=== PATIENT | female | born 1980 | race Two or more races ===

== ENCOUNTER 2023-01-27 15:14 | Inpatient (IN) | payer MEDICAID ==
[~2023-01-27] VITALS: Ht 172.7 cm; Wt 143.4 kg
--- NOTE | 2023-01-27 16:16 | NUR ---
ADMIT NOTE: Pt. direct admit from [facility]. Pt. is on a 5150 for DTS. 5150 states "You are reporting you are feeling suicidal and are unable to safety plan". Pt. cooperative with admission assessment and skin check. Pt. has multiple bruises (see pictures). Pt. has rashes on her wrist, pt. reports that she was recently in snf for trespassing and that her rash on her wrist are from the handcuffs and bruises are from being roughed up by the police. Pt. denies current SI/HI, A/V hallucinations. Pt. reports self harm behavior x1 month ago when she burned a cigarette into her arm. Pt. reports she self-harms due to stress r/t her having custody of their daughter and her visiting being restricted. Pt. reports that she is in a crisis primarily due to her insomnia and feeling manic. Pt. states, "I really just need to sleep". Pt. requested smoking cessation information and given print out. Pt. is A&Ox4 and in no apparent distress.
[2023-01-27] MEDS ORDERED: magnesium hydroxide 30ml (MOM) UD suspension PO PRN (16:20)
[2023-01-27] MEDS ORDERED: loperamide 2mg capsule PO PRN (16:20)
[2023-01-27] MEDS ORDERED: acetaminophen 325mg tablet PO PRN ×2 (16:20)
[2023-01-27] MEDS ORDERED: SERT25TA PO (16:39)
[2023-01-27] MEDS ORDERED: OLAN15TA3 PO (16:39)
[2023-01-27] MEDS ORDERED: TRAZ-256 PO (16:39)
[2023-01-27 18:23] VITALS: BP 124/85
[2023-01-27 19:00] VITALS: BP 118/71
[2023-01-27] MEDS: traZODone 50mg tablet PO PRN (20:35)
[2023-01-27] MEDS: OLANZAPINE 5 MG TABLET PO SCH (20:35)
--- NOTE | 2023-01-28 03:42 | NUR ---
Nursing Progress Note: Problem: Pt. direct admit from [facility]. Pt. is on a 5150 for DTS. 5150 states "You are reporting you are feeling suicidal and are unable to safety plan". Pt. cooperative with admission assessment and skin check. Pt. has multiple bruises (see pictures). Pt. has rashes on her wrist, pt. reports that she was recently in [facility] [place] [facility] and that her rash on her wrist are from the handcuffs and bruises are from being roughed up by the police. Pt. denies current SI/HI, A/V hallucinations. Pt. reports self harm behavior x1 month ago when she burned a cigarette into her arm. Pt. reports she self-harms due to stress r/t her having custody of their daughter and her visiting being restricted. Pt. reports that she is in a crisis primarily due to her insomnia and feeling manic. Pt. states, "I really just need to sleep". Interventions: Provided 1:1 assessment, therapeutic communication, maintained a safe and supportive environment, ensured contract for safety, provided clear and simple instructions, provided active listening and positive encouragement, and maintained Q 15min safety checks. Response: Patient is pleasant and cooperative with care; compliant with medication. PRN Trazodone for sleep and Nicotine lozenge provided. Patient denied SI, HI, A/VH; no apparent delusions expressed. She was social with peers and watched TV in the recreation room; participated in HS snack prior to bed. Patient reported difficulty sleeping after sleeping aprox. 2hrs; after talking with comic book writer she was observed sleeping and does not appear to be having difficulty. Plan: Patient requires stabilization and possible medication adjustment in a safe and therapeutic environment.
[2023-01-28 07:50] LABS: HEMOGLOBIN A1C 5.1 % (4.5-6.2)
[2023-01-28 08:00] VITALS: BP 131/97
[2023-01-28] MEDS ORDERED: sertraline 50mg tablet PO SCH (08:00)
[2023-01-28 08:08] LABS: CHOL/HDL RATIO 2.4 (0.00-4.99); CHOLESTEROL 160 MG/DL (0-200); HDL CHOLESTEROL 66 MG/DL (35-60); LDL CHOLESTEROL 81 MG/DL (50-100); TRIGLYCERIDES 56 MG/DL (20-135)
[2023-01-28] MEDS: nicotine 21mg patch - 24 hr TD SCH (08:25)
[2023-01-28] MEDS ORDERED: albuterol 2.5 MG/3 ML nebule NEB PRN (10:10)
[2023-01-28] MEDS: HALLS - SOOTHE MENTHOL 1.8 MG cough drop LOZENGE MM PRN ×4 (11:15→21:51)
--- NOTE | 2023-01-28 17:10 | NUR ---
Nursing Progress Note: Problem: Pt. direct admit from [facility]. Pt. is on a 5150 for DTS. 5150 states "You are reporting you are feeling suicidal and are unable to safety plan". Pt. reports she self-harms due to stress r/t her having custody of their daughter and her visiting being restricted. Pt. reports that she is in a crisis primarily due to her insomnia and feeling manic. Pt. states, "I really just need to sleep". Interventions :1:1 assessment, establishment of rapport, therapeutic conversation, active listening, ensured contract for safety, medication administration/education/monitoring, provided distraction, redirection, positive reinforcement, and Q15 minute safety checks. Response: Pt was up before breakfast c/o sinus symptoms: sore throat, nasal congestion with yellow-green drainage, and productive cough. Orders were given for PRN menthol honey cough drops and PRN albuterol neb treatments. Lungs are clear, no c/o of SOB. Pt was provided with PRN cough drops per request throughout the day at 1115, 1410, and 1656. Pt was cooperative with her morning Zoloft and nicotine patch. Pt's Zoloft was decreased to 50 mg daily today and she has a new order for PRN Atarax 50 mg. Pt reports that she is "doing better." Pt denied SI today. Pt denies AH/VH. Pt endorses some depression and anxiety. Pt reports that she was manic and feels better now that she has gotten meds and sleep. Pt reports that she enjoys her first manic day as she can get lots of stuff done however; after the 4th day, she know she needs some help. 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 Pt watched TV, colored, and socialized with peers in the community and rec rooms. No unsafe behaviors noted. Plan: Pt in need of medication adjustment and management in a safe and therapeutic environment until stable.
[2023-01-28 19:00] VITALS: BP 130/64
[2023-01-28] MEDS: OLANZAPINE 5 MG TABLET PO SCH (20:39)
[2023-01-28] MEDS: traZODone 50mg tablet PO PRN (20:39)
[2023-01-28] MEDS: NICOTINE POLACRILEX 2 MG LOZENGE BC PRN (21:51)
--- NOTE | 2023-01-29 03:25 | NUR ---
Nursing Progress Note: Problem: Pt. direct admit from [facility]. Pt. is on a 5150 for DTS. 5150 states "You are reporting you are feeling suicidal and are unable to safety plan". Pt. cooperative with admission assessment and skin check. Pt. has multiple bruises (see pictures). Pt. has rashes on her wrist, pt. reports that she was recently in snf for trespassing and that her rash on her wrist are from the handcuffs and bruises are from being roughed up by the police. Pt. denies current SI/HI, A/V hallucinations. Pt. reports self harm behavior x1 month ago when she burned a cigarette into her arm. Pt. reports she self-harms due to stress r/t her having custody of their daughter and her visiting being restricted. Pt. reports that she is in a crisis primarily due to her insomnia and feeling manic. Pt. states, "I really just need to sleep". Interventions: Provided 1:1 assessment, therapeutic communication, maintained a safe and supportive environment, ensured contract for safety, provided clear and simple instructions, provided active listening and positive encouragement, and maintained Q 15min safety checks. Response: Patient is pleasant and cooperative with care; compliant with medication. PRN Trazodone for sleep provided. Nicotine lozenge provided and patch removed. PRN cough drop provided for continued cold Sx. Patient denied SI, HI, A/VH; no apparent delusions expressed. Patient was social with peers in the community room and participated in HS snack prior to bed; observed sleeping and does not appear to be having difficulty. Plan: Patient requires stabilization and possible medication adjustment in a safe and therapeutic environment.
[2023-01-29 08:00] VITALS: BP 127/82
[2023-01-29] MEDS: sertraline 50mg tablet PO SCH (08:02)
[2023-01-29] MEDS: nicotine 21mg patch - 24 hr TD SCH (08:03)
--- NOTE | 2023-01-29 14:19 | NUR ---
Nursing Progress Note: Problem: Pt. direct admit from [facility] Unit. Pt. is on a 5150 for DTS. 5150 states "You are reporting you are feeling suicidal and are unable to safety plan". Pt. reports she self-harms due to stress r/t her having custody of their daughter and her visiting being restricted. Pt. reports that she is in a crisis primarily due to her insomnia and feeling manic. Pt. states, "I really just need to sleep". Interventions :1:1 assessment, establishment of rapport, therapeutic conversation, active listening, ensured contract for safety, medication administration/education/monitoring, provided distraction, redirection, positive reinforcement, and Q15 minute safety checks. Response: Pt was up for breakfast and cooperative with scheduled meds. Pt did not c/o cold symptoms today or request cough drops. Pt was present in the milieu for most of the shift coloring, participating in unit activities, and socializing with peers. Pt is talkative and has a bright affect. Pt denies SI/HI/AH/VH. Pt requested some dietary changes: almond milk, salads with lunch and dinner, no cow's milk. Plan: Pt in need of medication adjustment and management in a safe and therapeutic environment until stable.
[2023-01-29] MEDS: mag hydrox/Alum hydrox/simeth 30ml oral suspension PO PRN (16:51)
[2023-01-29 19:00] VITALS: BP 124/91
[2023-01-29] MEDS: NICOTINE POLACRILEX 2 MG LOZENGE BC PRN ×2 (19:06→21:01)
[2023-01-29] MEDS: OLANZAPINE 5 MG TABLET PO SCH (21:00)
[2023-01-29] MEDS: HALLS - SOOTHE MENTHOL 1.8 MG cough drop LOZENGE MM PRN (21:01)
[2023-01-29] MEDS: traZODone 50mg tablet PO PRN (21:01)
--- NOTE | 2023-01-30 03:30 | NUR ---
Nursing Progress Note: Problem: Pt. direct admit from [facility]. Pt. is on a 5150 for DTS. 5150 states "You are reporting you are feeling suicidal and are unable to safety plan". Pt. cooperative with admission assessment and skin check. Pt. has multiple bruises (see pictures). Pt. has rashes on her wrist, pt. reports that she was recently in [facility] for [facility] and that her rash on her wrist are from the handcuffs and bruises are from being roughed up by the police. Pt. denies current SI/HI, A/V hallucinations. Pt. reports self harm behavior x1 month ago when she burned a cigarette into her arm. Pt. reports she self-harms due to stress r/t her having custody of their daughter and her visiting being restricted. Pt. reports that she is in a crisis primarily due to her insomnia and feeling manic. Pt. states, "I really just need to sleep". Interventions: Provided 1:1 assessment, therapeutic communication, maintained a safe and supportive environment, ensured contract for safety, provided clear and simple instructions, provided active listening and positive encouragement, and maintained Q 15min safety checks. Response: Patient is pleasant and cooperative with care; compliant with medication. PRNs Trazodone for sleep and cough drops provided. PRN Nicotine lozenge provided and patch removed. Patient denied SI, HI, A/VH; no apparent delusions expressed. Patient socialized with peers and participated in HS snack prior to bed; observed sleeping and does not appear to be having difficulty. Plan: Patient requires stabilization and possible medication adjustment in a safe and therapeutic environment.
[2023-01-30] MEDS: sertraline 50mg tablet PO SCH (07:51)
[2023-01-30] MEDS: nicotine 21mg patch - 24 hr TD SCH (07:53)
[2023-01-30 08:00] VITALS: BP 123/86
[2023-01-30] MEDS: OLANZAPINE 5 MG TABLET PO SCH ×2 (09:31→21:00)
[2023-01-30] MEDS: HALLS - SOOTHE MENTHOL 1.8 MG cough drop LOZENGE MM PRN ×2 (11:06→18:48)
--- NOTE | 2023-01-30 11:13 | NUR ---
Initial: Pt admit on 5150 d/t DTS. Currently on a regular diet and eating well, documented 100% PO intake since admit meeting estimated nutrient needs. Noted pt not receiving food preferences in diet order comment, d/w dietary to honor, see below. Per EMR LBM 01/29, PRN bowel care available. No documented edema or wounds. No nutrition intervention implemented at this time. Will continue to follow. Recommendations: 1) Continue regular diet 2) [place] food preferences: sub regular milk with almond milk; salads BIDLD 3) Bowel care PRN 4) Weekly scaled weights Addendum: 01/30/23 at [address] Amended: Links added.
--- NOTE | 2023-01-30 15:56 | NUR ---
DISCHARGE PLAN Pt to discharge Thursday or Thursday of next week. Follow up appointments have been made with her PCP. Gavin at [facility] reported that they will be able to pick her up whichever day but they need 24 hour notice. Pt. has an appt. that she will be returning to in [place]. Fiona Dupree, [employer]
--- NOTE | 2023-01-30 16:11 | NUR ---
Nursing Progress Note: Problem: Pt. direct admit from [facility]. Pt. is on a 5150 for DTS. 5150 states "You are reporting you are feeling suicidal and are unable to safety plan". Pt. reports she self-harms due to stress r/t her having custody of their daughter and her visiting being restricted. Pt. reports that she is in a crisis primarily due to her insomnia and feeling manic. Pt. states, "I really just need to sleep". Interventions :1:1 assessment, therapeutic conversation, active listening, ensured contract for safety, medication administration/education/monitoring, provided limit setting, distraction, redirection, positive reinforcement, and Q15 minute safety checks. Response: Pt was up before breakfast socializing with peers in the rec room. Pt is rather needy and made several requests before breakfast and several more requests after breakfast. Pt wished to shower, to shave her legs, asked for coffee and a nicotine lozenge, wanted a piece of paper, asked to go through the clothing closet. Pt was given some lotion by another nurse that she didn't like so she asked for another kind; the "orange" one. Pt has a new order for Zyprexa 5 mg daily, given today at 0931. Pt requested a breathing treatment around 1100. Pt stated that Dr Melchor encouraged her to use them. Auscultated pt's lungs; clear in all lobes, no wheezing noted, no cough noted, pt was not short of breath, O2 sat was 97% on RA. Pt stated her lungs felt "a little tight." Suggested perhaps it could be anxiety related, offered a prn for anxiety which pt declined stating that the Zyprexa she took this morning should help with anxiety. Pt stated that she would just take a cough drop instead. Cough drop provided. Pt denies SI/HI/AH/VH. Pt is highly interactive with her peers, she is outgoing and socializes throughout the day. Pt appears to be in good spirits, she smiles and laughs frequently, she colors, watches TV, and plays board game with peers. Pt's 5150 hold was up today but pt reported that she doesn't feel quite ready to go home. Pt's hold status was changed to voluntary. Plan: Pt in need of medication adjustment and management in a safe and therapeutic environment until stable.
[2023-01-30] MEDS: NICOTINE POLACRILEX 2 MG LOZENGE BC PRN ×2 (18:48→20:59)
[2023-01-30 19:51] VITALS: BP 116/79
[2023-01-30] MEDS: traZODone 50mg tablet PO PRN (20:59)
--- NOTE | 2023-01-31 03:28 | NUR ---
Nursing Progress Note: Problem: Pt. direct admit from [facility]. Pt. is on a 5150 for DTS. 5150 states "You are reporting you are feeling suicidal and are unable to safety plan". Pt. cooperative with admission assessment and skin check. Pt. has multiple bruises (see pictures). Pt. has rashes on her wrist, pt. reports that she was recently in [facility] [place] and that her rash on her wrist are from the handcuffs and bruises are from being roughed up by the police. Pt. denies current SI/HI, A/V hallucinations. Pt. reports self harm behavior x1 month ago when she burned a cigarette into her arm. Pt. reports she self-harms due to stress r/t her having custody of their daughter and her visiting being restricted. Pt. reports that she is in a crisis primarily due to her insomnia and feeling manic. Pt. states, "I really just need to sleep". Interventions: Provided 1:1 assessment, therapeutic communication, maintained a safe and supportive environment, ensured contract for safety, provided clear and simple instructions, provided active listening and positive encouragement, and maintained Q 15min safety checks. Response: Patient is pleasant and cooperative with care; compliant with medication. PRN Trazodone provided for sleep. Nicotine lozenges provided and patch removed. Patient denied SI, HI, A/VH; no apparent delusions expressed. Patient showered, socialized with peers and participated in HS snack prior to bed; observed sleeping and does not appear to be having difficulty. Plan: Patient requires stabilization and possible medication adjustment in a safe and therapeutic environment.
[2023-01-31 07:55] VITALS: BP 118/84
[2023-01-31] MEDS: sertraline 50mg tablet PO SCH (07:59)
[2023-01-31] MEDS: OLANZAPINE 5 MG TABLET PO SCH ×2 (07:59→20:33)
[2023-01-31] MEDS: nicotine 14mg patch - 24hr TD SCH (10:26)
[2023-01-31] MEDS: NICOTINE POLACRILEX 2 MG LOZENGE BC PRN ×3 (10:26→20:33)
--- NOTE | 2023-01-31 17:04 | NUR ---
NURSING PROGRESS NOTE: Problem: Pt. direct admit from [facility]. Pt. is on a 5150 for DTS. 5150 states "You are reporting you are feeling suicidal and are unable to safety plan". Pt. reports she self-harms due to stress r/t her having custody of their daughter and her visiting being restricted. Pt. reports that she is in a crisis primarily due to her insomnia and feeling manic. Pt. states, "I really just need to sleep". Interventions: One to one assessment, therapeutic conversation, active listening, ensured contract for safety, medication administration/education/monitoring, provided limit setting, distraction, redirection, positive reinforcement, and Q15 minute safety checks. Response: Pt woke shortly after shift change, she sat in group room socializing with peers until breakfast. Pt continues to be highly interactive with peers, behavior is appropriate and she gets along with everyone. Pt was compliant with her medications. Pt asked for her Nicotine patch to be decreased to 14mg I am trying to stop smoking. Pt is future oriented and has a positive outlook. Pt understands she needs to stay away from her neighbor. Pt showered today. No delusional statements made, no behaviors this shift. Possibly discharge Thursday or Thursday. Plan: Patient requires more time for medication to reach full effect in a safe and therapeutic environment.
[2023-01-31 20:00] VITALS: BP 139/87
[2023-01-31] MEDS: HALLS - SOOTHE MENTHOL 1.8 MG cough drop LOZENGE MM PRN (20:33)
[2023-01-31] MEDS: traZODone 50mg tablet PO PRN ×2 (20:40→22:18)
--- NOTE | 2023-02-01 04:59 | NUR ---
Nurse Progress Note: Problem: Pt. direct admit from [facility]. Pt. is on a 5150 for DTS. 5150 states "You are reporting you are feeling suicidal and are unable to safety plan". Pt. cooperative with admission assessment and skin check. Pt. has multiple bruises (see pictures). Pt. has rashes on her wrist, pt. reports that she was recently in care home for trespassing and that her rash on her wrist are from the handcuffs and bruises are from being roughed up by the police. Pt. denies current SI/HI, A/V hallucinations. Pt. reports self harm behavior x1 month ago when she burned a cigarette into her arm. Pt. reports she self-harms due to stress r/t her having custody of their daughter and her visiting being restricted. Pt. reports that she is in a crisis primarily due to her insomnia and feeling manic. Pt. states, "I really just need to sleep". Interventions: Provided 1:1 assessment, therapeutic communication, maintained a safe and supportive environment, ensured contract for safety, provided clear and simple instructions, provided active listening and positive encouragement, and maintained Q 15min safety checks. Response: Patient socializes with others following shift change. 1:1 Interview in patients room. This patient is well oriented and cooperative. She denies S/I, H/I, or any hallucinations. PRN Nicotine Lozenge given. Patient states "I'm feeling better." Patient states "I no longer want to ." She also states she has good familly support. The patient does present as linear. At times this patient is hyperverbal. Plan: Patient requires stabilization and possible medication adjustment in a safe and therapeutic environment.
[2023-02-01] MEDS: OLANZAPINE 5 MG TABLET PO SCH ×2 (07:41→20:43)
[2023-02-01] MEDS: nicotine 14mg patch - 24hr TD SCH (07:41)
[2023-02-01] MEDS: sertraline 50mg tablet PO SCH (07:41)
[2023-02-01 08:00] VITALS: BP 135/87
[2023-02-01] MEDS: NICOTINE POLACRILEX 2 MG LOZENGE BC PRN ×3 (08:24→21:03)
[2023-02-01] MEDS: HALLS - SOOTHE MENTHOL 1.8 MG cough drop LOZENGE MM PRN (10:49)
[2023-02-01] MEDS: hydrOXYzine 25 MG tablet PO PRN (15:14)
--- NOTE | 2023-02-01 17:13 | NUR ---
Nursing Progress Note: Problem: Pt. direct admit from [facility]. Pt. is on a 5150 for DTS. 5150 states "You are reporting you are feeling suicidal and are unable to safety plan". Pt. reports she self-harms due to stress r/t her having custody of their daughter and her visiting being restricted. Pt. reports that she is in a crisis primarily due to her insomnia and feeling manic. Pt. states, "I really just need to sleep". Interventions :1:1 assessment, therapeutic conversation, active listening, ensured contract for safety, medication administration/education/monitoring, provided limit setting, distraction, redirection, positive reinforcement, and Q15 minute safety checks. Response: Received patient who was awake and ambulating in the pretty and requested a cup of ice. Patient reports that she has a Ingrown hair on my right buttocks that somebody should look at. Informed the patient that I would assess it first then if needed will notify the DrMansoor covering her today about the status of the wound. Patient began requesting multiple items as soon as 0630, such as mouthwash, body lotion, washcloths, ice, Nicotine Lozenges, and at times could be intrusive to get her needs met before others who were ahead of her reporting different things and when told that I had other immediate needs of others to deal with or give medications, the patient would walk away and appeared frustrated. Patient would remind me of her needs again in the next 30 minutes. Patient spent much of the day coloring and drawing in the Community Room and socializing with peers. Patient received Nicotine Lozenges approximately every 3 hours, and requested cough lozenges. When asked if she had a cough, she would cough mildly and say Yes. Patient said My nerves are acting up, at 1500 and received Atarax at that time which seemed to help her relax. At 1100, patient reported I dont need the DrMansoor called about the ingrown hair on my butt because it popped and feels a lot better. At 1300, the patient was asked by this Professor Of Chemistry to assess the area on her right buttocks. Area had approximately 2 inches of redness noted around a small open area on her central lower buttocks. Area was cleansed with SNS and Neosporin and a large bandaid was applied over the wound. Dr. Martinez was paged at 1400 regarding concerns about her wound and asked to return call, but no call was received the rest of the day. Patient denies SI/AV/AH and will continue to monitor her buttocks wound tomorrow and discuss with Dr. Verma when he arrives tomorrow. Plan: Patient in need of medication adjustment and management in a safe and therapeutic environment until stable.
[2023-02-01] MEDS: traZODone 50mg tablet PO PRN (20:43)
--- NOTE | 2023-02-02 00:21 | NUR ---
Nursing Progress Note: Sara Problem: Pt. direct admit from [facility]. Pt. is on a 5150 for DTS. 5150 states "You are reporting you are feeling suicidal and are unable to safety plan". Pt. reports she self-harms due to stress r/t her having custody of their daughter and her visiting being restricted. Pt. reports that she is in a crisis primarily due to her insomnia and feeling manic. Pt. states, "I really just need to sleep". Interventions :1:1 assessment, therapeutic conversation, active listening, ensured contract for safety, medication administration/education/monitoring, provided limit setting, distraction, redirection, positive reinforcement, and Q15 minute safety checks. Response: Patient is pleasant and cooperative with care; compliant with medication. PRN Trazodone provided for sleep. Nicotine lozenges provided and patch removed. Patient denied SI, HI, A/VH; no apparent delusions expressed. Patient states she feels good and is ready to discharge on Thursday. Pt has no complaints and questions about her meds shell get to take with her. Plan: Patient in need of medication adjustment and management in a safe and therapeutic environment until stable.
[2023-02-02] MEDS: nicotine 14mg patch - 24hr TD SCH (07:28)
[2023-02-02] MEDS: sertraline 50mg tablet PO SCH (07:29)
[2023-02-02] MEDS: OLANZAPINE 5 MG TABLET PO SCH ×2 (07:29→20:34)
[2023-02-02] MEDS: NICOTINE POLACRILEX 2 MG LOZENGE BC PRN ×4 (07:33→22:27)
[2023-02-02 08:00] VITALS: BP 123/83
--- NOTE | 2023-02-02 15:29 | NUR ---
DISCHARGE PLAN Pt plans to go back home to [place] tomorrow. Transportation has been arranged through [facility] and they will plan to pick her up tomorrow sometime between 1-4 in the afternoon. They will give a more definite time in the morning. Fiona Dupree LCSW
--- NOTE | 2023-02-02 16:35 | NUR ---
Nursing Progress Note: Problem: Pt. direct admit from [facility]. Pt. is on a 5150 for DTS. 5150 states "You are reporting you are feeling suicidal and are unable to safety plan". Pt. reports she self-harms due to stress r/t her having custody of their daughter and her visiting being restricted. Pt. reports that she is in a crisis primarily due to her insomnia and feeling manic. Pt. states, "I really just need to sleep". Interventions :1:1 assessment, therapeutic conversation, active listening, ensured contract for safety, medication administration/education/monitoring, provided limit setting, distraction, redirection, positive reinforcement, and Q15 minute safety checks. Response: Patient was awake early and was sitting in the TV Room and requested a Nicotine Lozenge and it was noted when vital signs were taking by TREVER Noland that patients temp was 99.2 and was reported to Dr. Verma. Patient took her morning medications and spent much of the day in the Community Room throughout most of the day, coloring pictures and socializing with her peers today. Patient was calm, pleasant and cooperative throughout the day. Spoke with Dr. Verma at 0900 this morning to report patient has what she reports as an Ingrown hair, on her right buttocks that she showed me yesterday and informed him that I had called Dr. Martinez yesterday and had not heard back from him. Dr. Verma informed that he would be ordering an antibiotic for this patient today. Informed the patient. Patient showered this afternoon and reported that the wound has yellow/sanguineous drainage and was observed and noted to have a large amount of redness and warmth around the open area on her right buttocks. Neosporin and a large bandaid was applied over the wound at approximately 1400 and the patient tolerated it well. Will continue to monitor this patient closely and will administer the antibiotics as soon as the order is received from Dr. Verma. Plan: Patient will discharge between 1 & 4 pm tomorrow to return to [place] and will be picked up by [facility]. Patient in need of medication adjustment and management in a safe and therapeutic environment until stable.
[2023-02-02] MEDS: mag hydrox/Alum hydrox/simeth 30ml oral suspension PO PRN (19:14)
[2023-02-02 20:00] VITALS: BP 126/80
[2023-02-02] MEDS: sulfamethoxazole/trimethoprim DS (800/160mg) tablet PO SCH (20:34)
[2023-02-02] MEDS: traZODone 50mg tablet PO PRN (20:34)
[2023-02-02] MEDS: hydrOXYzine 25 MG tablet PO PRN (22:27)
--- NOTE | 2023-02-03 00:36 | NUR ---
Nursing Progress Note: [place] Problem: Pt. direct admit from [facility]. Pt. is on a 5150 for DTS. 5150 states "You are reporting you are feeling suicidal and are unable to safety plan". Pt. reports she self-harms due to stress r/t her having custody of their daughter and her visiting being restricted. Pt. reports that she is in a crisis primarily due to her insomnia and feeling manic. Pt. states, "I really just need to sleep". Interventions :1:1 assessment, therapeutic conversation, active listening, ensured contract for safety, medication administration/education/monitoring, provided limit setting, distraction, redirection, positive reinforcement, and Q15 minute safety checks. Response: Received pt in the community watching TV with peers and headphones on. Pt calm and cooperative, denies MH symptoms. Pt requested PRN nicotine lozenge and states her stomach is upset. PRN Maalox given with good effect. Pt remains in community room playing cards with peers. She takes all her HS medications without issue. Pt up around 2200 for additional sleep aid. PRN atarax given with good effect. Pt has an open area on her right buttock what she reports is from an ingrown hair. Band-Aid has been applied and is CDI. PT starts ABX for this shift. Plan: Patient will discharge between 1 & 4 pm tomorrow to return to [place] and will be picked up by [facility]. Patient in need of medication adjustment and management in a safe and therapeutic environment until stable.
[2023-02-03] MEDS: OLANZAPINE 5 MG TABLET PO SCH (07:54)
[2023-02-03] MEDS: nicotine 14mg patch - 24hr TD SCH (07:54)
[2023-02-03] MEDS: sulfamethoxazole/trimethoprim DS (800/160mg) tablet PO SCH (07:54)
[2023-02-03] MEDS: sertraline 50mg tablet PO SCH (07:54)
[2023-02-03 08:00] VITALS: BP 134/89
[2023-02-03] MEDS ORDERED: SERT-433 PO (08:46)
[2023-02-03] MEDS ORDERED: HYDR-3686 PO (08:46)
[2023-02-03] MEDS ORDERED: NICO-907 BC (08:46)
[2023-02-03] MEDS ORDERED: TRAZ-251 PO (08:46)
[2023-02-03] MEDS ORDERED: NICO-631 TD (08:46)
[2023-02-03] MEDS ORDERED: SULF1TAB45 PO (08:46)
[2023-02-03] MEDS ORDERED: OLAN5TAB75 PO (08:48)
[2023-02-03] MEDS ORDERED: OLAN15TA20 PO (08:48)
[2023-02-03] MEDS: NICOTINE POLACRILEX 2 MG LOZENGE BC PRN ×2 (09:55→12:02)
[2023-02-03] MEDS: hydrOXYzine 25 MG tablet PO PRN (11:04)
--- NOTE | 2023-02-03 15:12 | NUR ---
DISCHARGE NOTE: 02/03/2023 12:25 Received discharge orders from Dr. Verma at approximately 1100 and printed and reviewed the discharge orders with the patient that include her medications to continue, medications to discontinue, her follow-up appointments and what to do if she has any further problems. Patient signed the required paperwork and her stored medications were retrieved from the Pharmacy. Patient read and appeared to understand her discharge orders and what to do in the event she required further care. Patient was informed that her prescriptions were ready at [facility]. Patients stored belongings were reviewed with the patient including the paperwork that she had signed in on Admission. Patient agreed she had received all of her belongings. Patients transportation from [facility] arrived to [facility] at 1220 and patient was escorted by TREVER Faulkner, down to the transportation van waiting in front of the hospital and her discharge time was 1225.
== END 2023-02-03 12:20 | disposition home or self-care (01) | DRG 753 ==
LOC: ADULT MH 16:14
PROVIDERS: ADMIT Psychiatry & Neurology Psychiatry; ATTEND Psychiatry & Neurology Psychiatry
DX: F31.9 Bipolar disorder, unspecified (principal); R45.851 Suicidal ideations; F17.210 Nicotine dependence, cigarettes, uncomplicated; F10.90 Alcohol use, unspecified, uncomplicated; F12.10 Cannabis abuse, uncomplicated; G47.00 Insomnia, unspecified; R23.8 Other skin changes; F41.9 Anxiety disorder, unspecified; F15.10 Other stimulant abuse, uncomplicated; Z82.0 Family history of epilepsy and other diseases of the nervous system; Z79.899 Other long term (current) drug therapy; Z86.16 Personal history of COVID-19; Z88.0 Allergy status to penicillin; Z91.410 Personal history of adult physical and sexual abuse; Z91.018 Allergy to other foods; Z71.51 Drug abuse counseling and surveillance of drug abuser
CPT/HCPCS: 36415; 80061; 83036; 87081; 99285; A6258; Q0177